=== PATIENT | male | born 1955 | race Caucasian/White ===

== ENCOUNTER 2017-08-18 17:16 | Observation (INO) | payer OTHER ==
[~2017-08-18] VITALS: Ht 175.3 cm; Wt 84.1 kg
[2017-08-18 16:59] VITALS: BP 138/91; PULSE 90; RESP 21; O2SAT 94
--- NOTE | 2017-08-18 18:09 | ED.REPORT ---
HPI-Syncope Date of Service Aug 18, 2017 ED Provider: Akin Bowens DO Pt is a 62 year old male who presents to the ED via EMS after a witnessed near syncopal episode onset prior to arrival. The pt reports that he is currently symptomatic, denying chest pain, blurred vision, diplopia, and headache. His (witness) reports that the pt was standing at the fridge when he became incoherent with lightheaded. She denies syncope, but complains of change in LOC. The pt donated blood today at noon. Per pt's , he had eaten an apple prior to his blood donation. Pt also has a history of fundoplication on 08/13/17 in [place] and has been on a liquid diet since. Per EMS, the pt had a standing blood pressure of 80 on their arrival, and he was provided 1700 mL NS en route. The pt denies a history of using bronchodilators. Nursing Notes Stated Complaint: SYNCOPE Chief Complaint: General Complaint Nursing Notes Reviewed: Yes Allergies: Coded Allergies: No Known Allergies (Unverified , 08/18/17) Unable to Obtain Active Prescriptions or Reported Meds General Time Seen by Provider: 18:09 Chief Complaint Almost passed out Hx Obtained From: Patient, Spouse, EMS Arrived By: Ambulance Onset Occurred: Just prior to arrival Symptom Duration: 1 - 15 minutes Severity: Current: No pain currently Severity: Maximum: No pain Recent Healthcare: Recent doctor visit Similar Sx Previous: No Past Medical History Past Medical History Denies Past Surgical History fundoplication Smoking History Unknown if Ever Smoker Social History Other Social History: Good social support Ambulatory Status Independent Review of Systems Eyes: Denies: Blurred bilateral, Blurred left, Blurred right, Diplopia Cardiovascular: Denies: Chest pain Neurologic: Reports: Change LOC, Lightheaded, Slurred speech, Denies: Headache, Syncope Complete sys rev & neg: except as marked. Physical Exam Initial Vital Signs Vital Signs (First) Date Time Temp Pulse Resp B/P Pulse Ox O2 Delivery O2 Flow Rate FiO2 08/18/17 16:59 36.4 90 21 138/91 94 Room Air 08/18/17 19:21 2 Initial VS: Reviewed Head / Eyes: Atraumatic, Normocephalic Neck: Supple, Full range of motion Abdomen / GI: Soft Upper Extremities: Vascular intact, Neuro intact Skin: Warm, Dry, No cyanosis Psychiatric: Mood/affect normal, Behavior normal General/Constitutional: Awake, Alert Respiratory / Chest: Atraumatic Faint wheeze and crackles in the left upper lobe Cardiovascular: Heart rate NL, Regular rhythm, Heart sounds NL Lower Extremity / Pelvis / MS: Atraumatic, Full range of motion, Neurologic intact, Vascular intact Neurologic: Oriented X3, Speech NL, CN II - XII intact Interpretation & Diagnostics CT ANGIO CHEST PULMONARY EMBOLISM: IMPRESSION: 1. No pulmonary embolus. 2. Small amount of pneumomediastinum. 3. Mild atypical pneumonia. 4. Findings discussed with Dr. Bowens on 08.18.17 at 2035 hrs. Dictated by: Luz Garcia M.D. on 08/18/2017 at 20:32 Lab Results Interpretation Result Diagram: 08/19/17 0500 08/19/17 0500 Test 08/18/17 18:05 08/18/17 18:06 D-Dimer 1.05mg/L FEU (<0.50) Magnesium Level 2.0mg/dL (1.6-2.6) Troponin T < 0.010ug/L (0.0-0.011) Procalcitonin 0.02ng/mL (0.00-0.08) Hold Barrow Top Tube Received (Received) Lab Results Interpretation: WBC - 10.5, high Neut % - 74.2, high Lymph % - 13.5, low D-Dimer - 1.05, high Glucose - 104, high Calcium - 8.0, low Total Billirubin - 1.3, high Albumin - 3.1, low ECG Interpretation ECG Interpretation: Sinus rhythm with a rate of 83 Left anterior fascicular block Time: 18:13 Interpreted by: ED physician X-Ray Chest Interpretation Chest Xray Interpretation: IMPRESSION: Mild edema versus atypical pneumonia. Dictated by: Luz Garcia M.D. on 08/18/2017 at 18:55 View: Portable, 1 view Interpretation / Wet Read by: Interpret - Radiologist Re-Eval/Medical Decision Source of Hx: Old records Re-Evaluation/Progress #1: Time of Eval: 18:26 Re-Evaluation/Progress Note: Discussed pulmonary embolism with the pt, but informed him that his symptoms could be secondary to his recent blood donation and surgery. Informed pt of plan to ECG, chest x-ray, and labs. Pt understands and agrees with plan. All questions addressed. Re-Evaluation/Progress #2: Time of Eval: 19:00 Re-Evaluation/Progress Note: Pt rechecked. Informed pt of x-ray results and need for CT. Pt understands and agrees with plan for CT. All questions addressed. Re-Evaluation/Progress #3: Time of Eval: 20:50 Re-Evaluation/Progress Note: Pt rechecked. Informed pt of CT scan results and plan for admission. Pt understands and agrees with plan for admission. All questions addressed. Consultation #1: Requested Call at: 20:53 Call Returned at: 21:28 Note: Paged for Dr. Garay, the pt's surgeon for his recent surgery in [place]. Physician on-call for Dr. Garay returned call. Discussed CT scan results, and he concurs with plan. States that pneumomediastinum is standard for post-op day 5. Consultation #2: Referral / Consult Name: Luz Garcia MD Call Returned at: 21:17 Linoleum Floor Layer: Agrees with eval, Agrees with plan Note: Consulted with radiologist. Discussed pt's case and imaging. Consultation #3: Referral / Consult Name: Milena Hayes DO Consulted With: Hospitalist Call Returned at: 21:52 Linoleum Floor Layer: Will see patient, Agrees with eval, Agrees with plan, Accepts admit Counseled Regarding: Diagnosis, Lab results, Need for admission Discharge & Departure Impression: Primary Impression: Pneumonia Pneumonia type: due to unspecified organism Laterality: unspecified laterality Lung location: unspecified part of lung Qualified Code: J18.9 - Pneumonia, unspecified organism Additional Impression: Hypoxia Disposition: ADMITTED TO HOSPITAL Discharge Condition All VS Reviewed: Yes Condition: Stable Referrals: Robbie Bhat MD (PCP) Scribe Attestation Portions of this note were transcribed by Lizette Vidal. I, Dr. Bowens personally performed the history, physical exam and medical decision-making; I reviewed and confirmed the accuracy of the information in the transcribed note. Signed by : Franco Balderrama, 08/18/17. copies to: Robbie Bhat MD, Todd P DO Aug 18, 2017 18:09 Lizette Medina Aug 18, 2017 18:48 Alkaline Phosphatase 64U/L (25-160) Troponin T < 0.010ug/L (0.0-0.011) Total Protein 6.7g/dL (6.4-8.4) Albumin 3.1g/dL (3.4-5.0) Hold Barrow Top Tube Received (Received) Lab Results Interpretation: WBC - 10.5, high Neut % - 74.2, high Lymph % - 13.5, low D-Dimer - 1.05, high Glucose - 104, high Calcium - 8.0, low Total Billirubin - 1.3, high Albumin - 3.1, low ECG Interpretation ECG Interpretation: Sinus rhythm with a rate of 83 Left anterior fascicular block Time: 18:13 Interpreted by: ED physician X-Ray Chest Interpretation Chest Xray Interpretation: IMPRESSION: Mild edema versus atypical pneumonia. Dictated by: Luz Garcia M.D. on 08/18/2017 at 18:55 View: Portable, 1 view Interpretation / Wet Read by: Interpret - Radiologist Re-Eval/Medical Decision Source of Hx: Old records Re-Evaluation/Progress #1: Time of Eval: 18:26 Re-Evaluation/Progress Note: Discussed pulmonary embolism with the pt, but informed him that his symptoms could be secondary to his recent blood donation and surgery. Informed pt of plan to ECG, chest x-ray, and labs. Pt understands and agrees with plan. All questions addressed. Re-Evaluation/Progress #2: Time of Eval: 19:00 Re-Evaluation/Progress Note: Pt rechecked. Informed pt of x-ray results and need for CT. Pt understands and agrees with plan for CT. All questions addressed. Re-Evaluation/Progress #3: Time of Eval: 20:50 Re-Evaluation/Progress Note: Pt rechecked. Informed pt of CT scan results and plan for admission. Pt understands and agrees with plan for admission. All questions addressed. Consultation #1: Requested Call at: 20:53 Call Returned at: 21:28 Note: Paged for Dr. Garay, the pt's surgeon for his recent surgery in [place]. Physician on-call for Dr. Garay returned call. Discussed CT scan results, and he concurs with plan. States that pneumomediastinum is standard for post-op day 5. Consultation #2: Referral / Consult Name: Luz Garcia MD Call Returned at: 21:17 Linoleum Floor Layer: Agrees with eval, Agrees with plan Note: Consulted with radiologist. Discussed pt's case and imaging. Consultation #3: Referral / Consult Name: AbigailMilenacharlette Lantigua DO Consulted With: Hospitalist Call Returned at: 21:52 Linoleum Floor Layer: Will see patient, Agrees with eval, Agrees with plan, Accepts admit Counseled Regarding: Diagnosis, Lab results, Need for admission Discharge & Departure Impression: Primary Impression: Pneumonia Pneumonia type: due to unspecified organism Laterality: unspecified laterality Lung location: unspecified part of lung Qualified Code: J18.9 - Pneumonia, unspecified organism Additional Impression: Hypoxia Disposition: ADMITTED TO HOSPITAL Discharge Condition All VS Reviewed: Yes Condition: Stable Referrals: Robbie Bhat MD (PCP) Scribe Attestation Portions of this note were transcribed by Lizette Vidal. I, Dr. Bowens personally performed the history, physical exam and medical decision-making; I reviewed and confirmed the accuracy of the information in the transcribed note. Signed by : Franco Balderrama, 08/18/17. copies to: Robbie Bhat MD, Todd P DO Aug 18, 2017 18:09 Lizette Medina Aug 18, 2017 18:48
[2017-08-18 18:19] LABS: BASOPHILS % (AUTO) 0.7 % (0-3); EOSINOPHILS % (AUTO) 2.4 % (0-5); MONOCYTES % (AUTO) 8.3 % (4-12); Mean Corpuscular Hemoglobin 30.2 pg (27.0-35.0); Mean Corpuscular Volume 87.3 fL (81-100); NEUTROPHILS % (AUTO) 74.2 % (40-74); Platelet Count 228 bil/L (150-400)
[2017-08-18] MEDS ORDERED: 0.9% Sodium Chloride 1,000 ML IV ONE (18:40)
[2017-08-18] MEDS ORDERED: Albuterol-Ipratropium 3 mL Inhalation Solution NEB ONE (18:40)
--- NOTE | 2017-08-18 18:56 | DRSVH ---
PROCEDURE: X-RAY CHEST ONE VIEW, PORTABLE ([id number]) INDICATIONS: post op hypoxia, syncope TECHNIQUE: One view of the chest was acquired. COMPARISON: None. FINDINGS: Surgical changes and devices: None. Lungs and pleura: No pleural effusions or pneumothorax. Mild diffuse interstitial pulmonary opacity. Mediastinum: Mediastinal contours appear normal. Heart size is normal. Bones and chest wall: No suspicious bony lesions. Overlying soft tissues appear unremarkable. IMPRESSION: Mild edema versus atypical pneumonia. Dictated by: Luz Garcia M.D. on 08/18/2017 at 18:55 Approved by: Luz Garcia M.D. on 08/18/2017 at 18:55
[2017-08-18 19:21] VITALS: PULSE 82; RESP 18; O2SAT 94
[2017-08-18] MEDS ORDERED: Piperacillin-Tazo 3.375 Gm Inj 3.375 GM in Dextrose 5% Minibag Plus 50 ML IV ONE (20:35)
--- NOTE | 2017-08-18 20:38 | DRSVH ---
PROCEDURE: CT ANGIO CHEST PULMONARY EMBOLISM ([id number]) INDICATIONS: post op hypoxia, syncope TECHNIQUE: After the administration of intravenous contrast, 2 mm thick sections acquired from the pulmonary api gaby to the posterior costophrenic angles. 3-dimensional maximum intensity projection (MIP) coronal a nd sagittal reformats were then acquired through the thorax. For radiation dose reduction, the follo wing was used: automated exposure control, adjustment of mA and/or kV according to patient size. COMPARISON: None. FINDINGS: Image quality: Excellent. Pulmonary arteries: Pulmonary arteries are normal in size, and demonstrate no intraluminal filling d efects to suggest central pulmonary embolism. Lungs and pleura: There is moderate diffuse groundglass pulmonary opacity. No pleural effusions or pn eumothorax. Central and peripheral airways are patent. Mediastinum: Heart size is normal, without pericardial effusion. There is a small amount of pneumom ediastinum anteriorly. No mediastinal or hilar adenopathy. Thoracic aorta is normal in caliber and e nhancement. Esophagus is normal in caliber, without hiatal hernia. Bones and chest wall: No suspicious bony lesions. Ribs and thoracic spine appear intact throughout. Thyroid gland is within normal limits on noncontrast imaging. No axillary or supraclavicular adeno santos. Abdomen: Visualized upper abdominal solid organs appear normal in the early arterial phase of enhanc ement. IMPRESSION: 1. No pulmonary embolus. 2. Small amount of pneumomediastinum. 3. Mild atypical pneumonia. 4. Findings discussed with Dr. Bowens on 08.18.17 at 2035 hrs. Dictated by: Luz Garcia M.D. on 08/18/2017 at 20:32 Approved by: Luz Garcia M.D. on 08/18/2017 at 20:36
[2017-08-18 21:15] VITALS: BP 102/63; PULSE 74; RESP 18; O2SAT 97
[2017-08-18 22:40] VITALS: BP 122/81; PULSE 68; RESP 23; O2SAT 97
[2017-08-18] MEDS: 0.9% Sodium Chloride 1,000 ML IV SCH (23:14)
[2017-08-18] MEDS ORDERED: Alum-Mag Hydrox-Simeth 30 mL Suspension PO PRN (23:15)
[2017-08-18] MEDS ORDERED: Ondansetron 2 mg/mL 2 mL Inj IVPUSH PRN (23:15)
[2017-08-18 23:33] VITALS: BP 101/72; PULSE 66; RESP 16; O2SAT 96
[2017-08-18 23:50] VITALS: PULSE 70
[2017-08-19 00:30] VITALS: BP 124/87; PULSE 70; O2SAT 92
--- NOTE | 2017-08-19 00:30 | NUR ---
Admit Patient arrived from ED to [facility] with syncope, hypoxia, pneumonia. Zosyn given in ED. Orthostatic vitals negative at this time. Patient requires 2L O2/NC to keep SpO2 >88%. Desats to 80% with activity and getting up to the bathroom. MD at bedside, reviewed scan results and lab results with patient.
[2017-08-19 00:32] VITALS: BP 107/87; PULSE 80; O2SAT 91
[2017-08-19 00:35] VITALS: BP 113/81; PULSE 84; O2SAT 90
[2017-08-19] MEDS ORDERED: Alum-Mag Hydrox-Simeth 30 mL Suspension PO PRN (00:45)
[2017-08-19] MEDS ORDERED: Polyethylene Glycol (PEG) 17 Gm Powder PO PRN (00:45)
[2017-08-19] MEDS ORDERED: Ondansetron 2 mg/mL 2 mL Inj IVPUSH PRN (00:45)
--- NOTE | 2017-08-19 01:18 | PCM.HPMED ---
Subjective Date of Service Aug 19, 2017 Primary Provider: Admitting Physician: Milena Hayes DO Primary Care Physician: Robbie Bhat MD Attending Physician: Milena Hayes DO Chief Complaint: Unresponsive History of Present Illness: Chris Webster is a 62-year-old male with past medical history significant for recent laparoscopic Ngoc fundoplication 5 days ago for silent reflux who presents after near syncopal episode. Near syncopal episode occurred this afternoon after donating blood. Patient's family witnessed the episode and described to the ED physician that the patient never lost consciousness or fell. He simply was not responding to questions and was unresponsive for a few minutes. This episode occurred after standing from a seated position. Patient then quickly returned to his baseline and when EMS arrived they found the patient to be hypotensive with systolic blood pressure in the 80s. He was given 1700 mL during transport to the ED. He states he felt much better after the fluid bolus. Of note the patient due to his recent surgery is on a liquid diet and states that he has not had good oral intake. Patient denies any chest pain, shortness of breath, diaphoresis, nausea, vomiting, abdominal pain, lower extremity pain, pleuritic chest pain, or headache. In the ED patient's initial vitals were temperature 36.4, pulse 90, respiratory rate 21 satting 94% on room air, and blood pressure 130/91. Initial labs were largely unremarkable aside from an elevated d-dimer. CTA was obtained which showed no pulmonary embolism but did show small amount of pneumomediastinum, and with the radiologist read as mild atypical pneumonia. Due to this finding in the ED patient was given 1 dose of Zosyn. Additional history includes significant pulmonary workup for interstitial lung disease seen on CT scan. He states that he is seen at least 4 manager advanced were done bronchoscopies and biopsies without a definitive diagnosis. He states at one time they thought it was hypersensitivity pneumonitis. Initial workup was started due to patient's shortness of breath and chronic cough. States that both of these improved since his laparoscopic Ngoc fundoplication completed 5 days ago in [place]. He believes this is the cause of his CT findings and discussed this with the ENT doctor he saw in [place] as well who recommended the laparoscopic Ngoc fundoplication. Patient does not want any further workup for his pulmonary findings. He states that he believes he needs time to heal now that his reflux is under control from the surgery. Review of Systems: Comprehensive review of systems was conducted with the patient and found to be negative except as noted above in HPI. Allergies Coded Allergies: No Known Allergies (Unverified , 08/18/17) Home Medications Zantac Gabapentin 2 other current medications the patient states will bring in tomorrow morning. PMH GERD Undiagnosed interstitial lung disease Surgical History Laparoscopic Ngoc fundoplication Family History Father - lung disease secondary to tobacco use Mother - at age 90 Social History Hx Alcohol Use: No Hx Substance Use: No Hx Tobacco Use: No Smoking Status: Never Smoker Living Arrangement: with Family Exam Vital Signs Vital Sign - Last Date Time Temp Pulse Resp B/P Pulse Ox O2 Delivery O2 Flow Rate FiO2 08/18/17 23:50 70 08/18/17 23:33 16 101/72 96 Nasal Cannula 2 08/18/17 16:59 36.4 Intake and Output 08/18/17 08/18/17 08/19/17 Cumulative From/Thru 15:00 23:00 07:00 08/18/17 16:59 - 08/19/17 00:26 Intake Total 1000 ml 1000 ml Balance 1000 ml 1000 ml Intake IV Total 1000 ml 1000 ml Exam General: No acute distress, well-developed, well-nourished, appropriately interactive HEENT: Normocephalic, atraumatic. External ears without defect. Pupils equal, round, and reactive to light and accommodation. Anicteric sclerae, moist conjunctivae, and no lid lag. Oropharynx free of erythema and cobble stoning with moist mucosa. Neck: Supple with full range of motion. No jugular venous distension. No bruits. No lymphadenopathy or thyromegaly. Cardiovascular: Regular rate and rhythm with no murmurs, rubs, or gallops appreciated Pulmonary: Clear to auscultation bilaterally with no crackles, wheezes, or rhonchi. Normal respiratory effort with no use of accessory muscles. Abdomen: Bowel tones present. Soft, nontender, nondistended. No hepatosplenomegaly or masses appreciated. Extremities: No clubbing, cyanosis, edema, or lymphadenopathy appreciated. Skin: Normal temperature, turgor, and texture; no rash, ulcers, or subcutaneous nodules appreciated. Neurological: Cranial nerves grossly intact. Normal muscle strength, tone, and bulk. Reflexes, coordination, and sensory function within normal limits. No known gait impairment. Psychiatric: Normal mood and affect. Alert and oriented to person, place, and time. Lab and Diagnostics Result Diagram: 08/18/[id number]/[id number]/[id number] Assessment & Plan Chris Webster is a 62-year-old male with past medical history significant for recent laparoscopic Ngoc fundoplication 5 days ago for silent reflux who presents after near syncopal episode. Near syncopal episode, present on admission, active. - Etiology likely secondary to orthostatic hypotension as a patient is on a liquid diet due to postoperative 5 days from Ngoc fundoplication and donated blood today. - Patient was hypotensive in the 80s systolic for EMS upon their arrival. - Received 1700 mL of NS during transport to the ED and additional liter in the ED. Blood pressure responded appropriately. - Repeated orthostatic blood pressure was negative. - Monitor on telemetry. Interstitial lung disease of unknown etiology, present on admission, active. - CT demonstrates crazy paving. Patient states this is chronic and he has been evaluated by 4 different manager advanced [place]. No specific diagnosis has been made. - Patient not on home O2 or other pulmonary medications. - He states that symptoms are much improved after his Ngoc fundoplication 5 days ago for silent GERD. - Recommended pulmonology consultation. Patient at this time does not want consultation or further workup. Acute on presumed chronic hypoxemic respiratory failure secondary to ILD, present on admission, active. - Patient had O2 sats in the 80s when ambulating in ED. Appropriately responded to supplemental O2. - Patient states that this is his baseline and that he consistently has oxygen saturations in the 80s to low 90s and desaturates with activity. - Does not use home O2. - Supplemental oxygen as needed. - Consultation and further treatment recommended as above but declined. Unlikely aspiration pneumonia, present on admission, active. - Initial concern for aspiration pneumonia as patient had a decreased level of consciousness. - Chest x-ray and CT read as possible pneumonia but in my review in light of the clinical picture appears that this is patient representative of interstitial lung disease with no specific consolidation. - In the ED patient received Zosyn on further antibiotics at this time. - CBC and procalcitonin unremarkable. Repeat in the morning. Pneumoperitoneum, present on admission, active. - [facility] contacted and confirmed that this is a typical postsurgical finding. - No treatment or intervention needed. GERD postop day 5 after Ngoc fundoplication, present on admission, active. - Surgery completed at [facility]. - Medications include Zantac's and 2 other medications that the patient's will bring in tomorrow. PRN Medications - Acetaminophen as needed for mild pain/fever/headache - Bowel regimen as needed - Antiemetic as needed Patient is admitted under observation status with expected length of stay less than 2 midnights due to severity of presenting symptoms, risk of adverse event, and complexity of treatment plan. Pain Evaluation: Adequate Pain Control GI Prophylaxis: Not indicated VTE Prophylaxis: Sub-Q Heparin (Unfractionated) Resuscitation Status: CPR: Attempt Resuscitation GRANT ARVIZU DO Aug 19, 2017 01:17
[2017-08-19 02:42] VITALS: BP 105/77; PULSE 70; RESP 16; O2SAT 94
[2017-08-19] MEDS: 0.9% Sodium Chloride 1,000 ML IV SCH (02:46)
[2017-08-19 05:12] LABS: BASOPHILS % (AUTO) 0.5 % (0-3); Mean Corpuscular Hemoglobin 29.7 pg (27.0-35.0); Mean Corpuscular Volume 88.5 fL (81-100); NEUTROPHILS % (AUTO) 61.2 % (40-74); Platelet Count 203 bil/L (150-400)
[2017-08-19 08:26] VITALS: BP 158/89; PULSE 84; RESP 24; O2SAT 86
[2017-08-19] MEDS ORDERED: Heparin 5,000 Unit/mL Inj SUBQ SCH (08:30)
--- NOTE | 2017-08-19 10:05 | NUR ---
Med Rec Attempted to complete pt's Med Rec. When approached, pt responded "I amd being discharged" and refused to give any information about his home medications.
--- NOTE | 2017-08-19 10:49 | NUR ---
Social Work: Initial Assessment/Multidisciplinary Rounds D: Per EMR review, patient is a 62 year old male admitted for pneumonia, hypoxia. Patient is [facility] with no supplement; patient did not inform ANIMAL KEEPER if he has LTC or VA benefits. PCP is Robbie Bhat MD. NOK is Leny Webster, , . Advanced directives completed but not on file- ANIMAL KEEPER requested copy for chart. Readmit score is not entered at this time. Pt discussed in Multidisciplinary rounds. Capacity for self care discussed; no concerns or needs at this time. ANIMAL KEEPER met with the patient at bedside. Social work/dcp role explained, contact information and discharge planning checklist provided. See initial assessment. Patient lives on [address] with his . Patient is I with ADLs, self care and mobility. Patient uses no DME, has never had HH Or skilled rehab/nursing. Patient anticipates discharge home with his . He is very eager to leave and is requesting to speak with his provider as soon as possible. ANIMAL KEEPER informed resident provider who is going in to see the patient. A: Pt who is I a baseline. P: Anticipate patient to discharge home via POV once medically stable; ANIMAL KEEPER to continue to follow to assess for unmet discharge needs. ALEXANDER Barrera Addendum: 08/19/17 at 1053 by ISAIAS PEACE SS Amended: Links added.
[2017-08-19 10:51] VITALS: PULSE 100
--- NOTE | 2017-08-19 11:02 | PCM.DIMED ---
NAYELISWANSON A DO 08/19/17 1102: Discharge Instructions Date of Service Aug 19, 2017 Dates of Hospitalization Aug 18, 2017 at 22:44 Discharge Diagnosis Discharge Diagnosis Near syncopal episode Interstitial lung disease of unknown etiology Acute on presumed chronic hypoxemic respiratory failure secondary to ILD Unlikely aspiration pneumonia Pneumoperitoneum GERD postop day 6 after Ngoc fundoplication Medication Instructions Additional med instructions You are not being discharged to home with any new medications. Test Results Test Results Imaging done of your chest showed no evidence of pulmonary embolism. There was a a finding of possible mild atypical pneumonia which could also be interpreted as mild edema which is more likely given your absence of infectious laboratory markers. Diet Discharge Diet: No restrictions Activity Discharge Activity: Limited until seen by PCP Call your provider Call your provider for: Fever or Chills, Shortness of breath, Bleeding, Chest pain, Vomitting, Excessive diarrhea, Weakness (unilateral) Patient Instructions Patient Instructions The cause of your near syncopal episode is most likely secondary to your recent blood donation the day of admission to the hospital. Your vital signs have remained stable while in the hospital. There is some concern about your oxygen saturation levels dropping while you move around your hospital room. In speaking with you this morning you said that this was normal for you and due to your chronic lung issues. Out respiratory therapist worked with you and you only de-saturated to the low 90's while walking in the hallways. We do not believe that you have a current bacterial pneumonia. Your white blood cell count is with in normal limits, you do not have a fever and other infection markers were normal. At the time of discharge your blood cultures were also pending. If after discharge at home you develop any fevers, chills, nausea/vomiting, chest pain, cough with or without sputum production or any other concerning symptoms please return to the emergency department or urgent care. Follow-up plan Please follow up with your primary care provider in the next 1-2 weeks regarding this hospital stay or as needed. Follow-up Provider: Robbie Bhat MD Follow-up with PCP in: 1 week Aamir Tobias DO 08/20/17 0723: Discharge Instructions Attending's Statement Read and agree SKY TYLER DO Aug 19, 2017 11:02 Aamir Tobias DO Aug 20, 2017 07:23
--- NOTE | 2017-08-19 12:01 | NUR ---
Discharge pt ordered for discharge home and to follow up with PCP. pt deferred discharge instructions review, stating discharge packet wouldn't be necessary. pt and given discharge papers. pt and deferred medication review, stating they have all the information concerning medication at home. pt also deferred escort to front lobby. Pt had steady gait and all belongings. patient/ departed unit at about 1145.
--- NOTE | 2017-08-19 14:42 | PCM.DC.MED ---
Discharge Summary Date of Service Aug 19, 2017 Dates of Hospitalization Date of Hospital Admission Aug 18, 2017 at 22:44 Date of Discharge: Aug 19, 2017 Providers: Admitting Physician: Milena Hayes DO Primary Care Physician: Robbie Bhat MD Attending Physician: Aamir Tobais DO Diagnosis at Time of Discharge Diagnosis at Time of Discharge Near syncopal episode Interstitial lung disease of unknown etiology Acute on presumed chronic hypoxemic respiratory failure secondary to ILD Unlikely aspiration pneumonia Pneumoperitoneum GERD postop day 6 after Ngoc fundoplication Procedures XRay, CTs & MRIs . X-RAY CHEST ONE VIEW, PORTABLE IMPRESSION: Mild edema versus atypical pneumonia. Dictated by: Luz Garcia M.D. on 08/18/2017 CT ANGIO CHEST PULMONARY EMBOLISM IMPRESSION: 1. No pulmonary embolus. 2. Small amount of pneumomediastinum. 3. Mild atypical pneumonia. 4. Findings discussed with Dr. Bowens on 08.18.17 at 2035 hrs. ADDENDUM: Given the history of surgery 5 days prior, these findings are consistent with postsurgical sequelae. There is no extraluminal gas adjacent to the Ngoc fundoplication. Findings discussed with Dr. Bowens on 08.18.17 at 2115 hrs. Dictated by: Luz Garcia M.D. on 08/18/2017 at 21:17 Brief History History and Physical per Dr. Rachel Jamison 08/19/2017 "Chris Webster is a 62-year-old male with past medical history significant for recent laparoscopic Ngoc fundoplication 5 days ago for silent reflux who presents after near syncopal episode. Near syncopal episode occurred this afternoon after donating blood. Patient's family witnessed the episode and described to the ED physician that the patient never lost consciousness or fell. He simply was not responding to questions and was unresponsive for a few minutes. This episode occurred after standing from a seated position. Patient then quickly returned to his baseline and when EMS arrived they found the patient to be hypotensive with systolic blood pressure in the 80s. He was given 1700 mL during transport to the ED. He states he felt much better after the fluid bolus. Of note the patient due to his recent surgery is on a liquid diet and states that he has not had good oral intake. Patient denies any chest pain, shortness of breath, diaphoresis, nausea, vomiting, abdominal pain, lower extremity pain, pleuritic chest pain, or headache. In the ED patient's initial vitals were temperature 36.4, pulse 90, respiratory rate 21 satting 94% on room air, and blood pressure 130/91. Initial labs were largely unremarkable aside from an elevated d-dimer. CTA was obtained which showed no pulmonary embolism but did show small amount of pneumomediastinum, and with the radiologist read as mild atypical pneumonia. Due to this finding in the ED patient was given 1 dose of Zosyn. Additional history includes significant pulmonary workup for interstitial lung disease seen on CT scan. He states that he is seen at least 4 steel handler were done bronchoscopies and biopsies without a definitive diagnosis. He states at one time they thought it was hypersensitivity pneumonitis. Initial workup was started due to patient's shortness of breath and chronic cough. States that both of these improved since his laparoscopic Ngoc fundoplication completed 5 days ago in [place]. He believes this is the cause of his CT findings and discussed this with the ENT doctor he saw in [place] as well who recommended the laparoscopic Ngoc fundoplication. Patient does not want any further workup for his pulmonary findings. He states that he believes he needs time to heal now that his reflux is under control from the surgery." Hospital Course Mr. Webster is a 62-year-old male with past medical history significant for left Fundal location surgery 6 days ago and noted to silent reflux who presented to the hospital after near syncopal episode. In the emergency department he received imaging which showed concern for possible mild atypical pneumonia versus pulmonary edema. He was given 1 dose of antibiotics and admitted to the hospital. Subsequent cultures and serologies were thus far negative, patient remained afebrile without a white count. Patient requested to be discharged the morning, same day of admit stating that she did not feel any worse than his baseline. He stated that he has a chronic history of lung problems and he is at his baseline. Patient was seen by respiratory therapy for exercise oxygenation assessment, on ambulation he maintains saturations in the low 90s which he stated was his normal. He was discharged to home in stable condition. Regarding a possible pneumonia he was given extensive instructions on when and why to return the ED, his present in the room who is a former nurse also expressed her willingness to monitor for signs and symptoms of a developing pneumonia. Additional information below regarding hospital course organized by diagnoses. Near syncopal episode, present on admission, resolved - Etiology likely secondary to orthostatic hypotension as he has been on a liquid diet for the last 5 days status post Ngoc fundoplication. Then donated blood the day of admission - Patient was hypotensive in the 80s systolic for EMS upon their arrival. - Received 1700 mL of NS during transport to the ED and additional liter in the ED. Blood pressure responded appropriately. - Repeated orthostatic blood pressure was negative. - Monitored on telemetry. - Patient remained hemodynamically stable during hospital course, time of discharge blood pressure 158/89 Interstitial lung disease of unknown etiology, present on admission, ongoing - CT demonstrates crazy paving. Patient states this is chronic and he has been evaluated by 4 different steel handler [place]. No specific diagnosis has been made. - Patient not on home O2 or other pulmonary medications. - He states that symptoms are much improved after his Ngoc fundoplication 5 days ago for silent GERD. - Recommended pulmonology consultation. Patient at this time does not want consultation or further workup. - No further workup for this diagnosis was undergone during hospitalization Acute on presumed chronic hypoxemic respiratory failure secondary to ILD, present on admission, active. - Patient had O2 sats in the 80s when ambulating in ED. Appropriately responded to supplemental O2. - Patient states that this is his baseline and that he consistently has oxygen saturations in the 80s to low 90s and desaturates with activity. - Does not use home O2. - Gave Supplemental oxygen as needed. - Consultation and further treatment recommended as above but declined. Unlikely aspiration pneumonia, present on admission, active. - Initial concern for aspiration pneumonia as patient had a decreased level of consciousness. 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 - In the ED patient received Zosyn, no further antibiotics given during hospital stay - CBC and procalcitonin unremarkable. Pneumoperitoneum, present on admission, active. - [facility] contacted and confirmed that this is a typical postsurgical finding. - No treatment or intervention needed. GERD postop day 5 after Ngoc fundoplication, present on admission, active. - Surgery completed at [facility]. - Medications include Zantac's and 2 other medications, med rec incomplete at time of discharge. Exam Vital Signs (Last) Date Time Temp Pulse Resp B/P Pulse Ox O2 Delivery O2 Flow Rate FiO2 08/19/17 10:51 100 Room Air 08/19/17 08:26 36.5 24 158/89 86 08/19/17 02:42 2.00 Exam General: Awake and alert sitting up in hospital bed in no acute distress, well- developed, well-nourished, appropriately interactive HEENT: Normocephalic, atraumatic. Neck: Supple with full range of motion. No jugular venous distension appreciated Cardiovascular: Regular rate and rhythm with no murmurs, rubs, or gallops appreciated Pulmonary: Clear to auscultation bilaterally upper and anterior lobes with no crackles, wheezes, or rhonchi appreciated. Normal respiratory effort with no use of accessory muscles. Extremities: No clubbing, cyanosis, or edema appreciated Neurological: Cranial nerves grossly intact. Psychiatric: Normal mood and affect. Alert and oriented to person, place, and time. Test 08/18/17 18:05 08/18/17 18:06 08/19/17 05:00 D-Dimer 1.05mg/L FEU (<0.50) Magnesium Level 2.0mg/dL (1.6-2.6) Troponin T < 0.010ug/L (0.0-0.011) Procalcitonin 0.02ng/mL (0.00-0.08) Hold Barrow Top Tube Received (Received) White Blood Count 7.7th/mm3 (3.8-10.1) Red Blood Count 4.78mil/mm3 (4.40-5.80) Hemoglobin 14.2g/dL (13.8-17.2) Hematocrit 42.3% (41.0-50.0) Mean Corpuscular Volume 88.5fL (81-100) Mean Corpuscular Hemoglobin 29.7pg (27.0-35.0) Mean Corpuscular Hemoglobin Concent 33.6% (32.0-37.0) Red Cell Distribution Width 13.6% (12.3-15.4) Platelet Count 203bil/L (150-400) Neutrophils (%) (Auto) 61.2% (40-74) Lymphocytes (%) (Auto) 18.9% (14-46) Monocytes (%) (Auto) 14.0% (4-12) Eosinophils (%) (Auto) 4.0% (0-5) Basophils (%) (Auto) 0.5% (0-3) Sodium Level 140mEq/L (134-144) Potassium Level 4.5mEq/L (3.5-5.2) Chloride Level 105mEq/L (97-108) Carbon Dioxide Level 26mmol/L (18-29) Blood Urea Nitrogen 10mg/dL (8-27) Creatinine 0.85mg/dL (0.76-1.27) Estimat Glomerular Filtration Rate 97mL/min (>59) Glucose Level 90mg/dL (60-99) Calcium Level 8.4mg/dL (8.5-10.1) Total Bilirubin 1.2mg/dL (0.0-1.2) Aspartate Amino Transf (AST/SGOT) 18U/L (0-50) Alanine Aminotransferase (ALT/SGPT) 17U/L (0-44) Alkaline Phosphatase 64U/L (25-160) Total Protein 6.5g/dL (6.4-8.4) Albumin 3.4g/dL (3.4-5.0) Discharge Medications Unable to Obtain Active Prescriptions or Reported Meds Additional med instructions You are not being discharged to home with any new medications. Followup Plan Disposition: Discharged home in stable condition Follow-up plan Please follow up with your primary care provider in the next 1-2 weeks regarding this hospital stay or as needed. Discharge Diet: No restrictions Discharge Activity: Limited until seen by PCP Patient Instructions The cause of your near syncopal episode is most likely secondary to your recent blood donation the day of admission to the hospital. Your vital signs have remained stable while in the hospital. There is some concern about your oxygen saturation levels dropping while you move around your hospital room. In speaking with you this morning you said that this was normal for you and due to your chronic lung issues. Out respiratory therapist worked with you and you only de-saturated to the low 90's while walking in the hallways. We do not believe that you have a current bacterial pneumonia. Your white blood cell count is with in normal limits, you do not have a fever and other infection markers were normal. At the time of discharge your blood cultures were also pending. If after discharge at home you develop any fevers, chills, nausea/vomiting, chest pain, cough with or without sputum production or any other concerning symptoms please return to the emergency department or urgent care. Follow-up Provider: Robbie Bhat MD Follow-up with PCP in: 1 week Time spent 40 minutes Attending Statement I have seen and evaluated the patient at bedside in addition to directly supervising care provided by resident physician Dr Mortensen on 08/19/2017. I agree with above documentation. copies to: Robbie Bhat MD, GILES A DO Aug 19, 2017 14:41 Aamir Tobias DO Aug 20, 2017 07:45
== END 2017-08-19 11:45 | disposition home or self-care (01) ==
LOC: SED 17:16 → EDBD 17:16 → INTOOBSV 22:44 → PCC 22:44
PROVIDERS: ADMIT Internal Medicine; ATTEND Family Medicine
DX: J84.9 Interstitial pulmonary disease, unspecified (principal); R55 Syncope and collapse; J96.11 Chronic respiratory failure with hypoxia; K21.9 Gastro-esophageal reflux disease without esophagitis
CPT/HCPCS: 36415; 71010; 71275; 80053; 83735; 84145; 84484; 85025; 85378; 87040; 93005; 94664; 96361; 96365; 99285; G0378; J2543; J7030; J7620